=== PATIENT | male | born 2000 | race Caucasian/White ===

== ENCOUNTER 2023-07-20 19:02 | Emergency (ER) | payer OTHER, SELFPAY ==
[2023-07-20 19:13] VITALS: BP 147/66; PULSE 106; RESP 16; TEMP 36.7; O2SAT 99
--- NOTE | 2023-07-20 19:22 | XRR_ITS ---
PROCEDURE INFORMATION: Exam: XR Right Hand Exam date and time: 07/20/2023 7:41 PM Age: 23 years old Clinical indication: Injury or trauma; Other: Dog bite; Hand; Right; Additional info: Injury, dog bite TECHNIQUE: Imaging protocol: Radiologic exam of the right hand. Views: 3 or more views. COMPARISON: No relevant prior studies available. FINDINGS: Bones/joints: The bones are intact. No fracture. Soft tissues: Soft tissue swelling in the 1st intercarpal space and in the 2nd and 3rd fingers. No foreign body. XR/XR hand RT min 3V* [id number] IMPRESSION: No acute skeletal findings.
--- NOTE | 2023-07-20 19:26 | ED_ITS ---
HPI - Animal Bite General: Chief Complaint: Animal Bite Stated Complaint: dog bite Time Seen by Provider: 07/20/23 19:23 History of Present Illness: Patient comes in today for a injury to his middle finger on his right hand. On Wednesday patient was trying to get something out of his dog's mouth when it bit down on his finger. Patient did not pay any concern to the injury until today when he noticed that it was more red and swollen. Patient has puncture wound to the distal lateral aspect of the middle finger on the right hand. Minimal to no swelling is noted. Patient does have some mild erythema at the site. Patient cannot recall his last tetanus but believes it was somewhere around seventh or eighth grade. Patient denies any allergies to medications. Associated symptoms: Deny fever(s) Review of Systems Const: Denies: fever(s) Musc: Reports: extremity pain and extremity swelling Physical Exam Const: COMMON NORMALS: alert HENMT: COMMON NORMALS: normocephalic HEAD & SCALP: normocephalic Neck/C-Spine: COMMON NORMALS: full ROM Cardio: COMMON NORMALS: regular rate RATE: regular rate GI: COMMON NORMALS: Soft to palpation and non-tender PALPATION: Yes Soft to palpation Extremity: RIGHT UPPER EXTREMITY: Yes hand & digits (Puncture wound distal lateral right middle finger, minimal swelling and red) Neuro: SENSORIUM/ORIENTATION: Yes alert Skin: TRAUMA: puncture (Distal right middle finger) Course Vital Signs: Vital signs: Vital Signs Temperature 98.0 F 07/20/23 19:13 Pulse Rate 106 H 07/20/23 19:13 Respiratory Rate 16 07/20/23 19:13 Blood Pressure 147/66 07/20/23 19:13 Pulse Oximetry 99 07/20/23 19:13 Oxygen Delivery Me thod Room Air 07/20/23 19:13 MDM - Animal Bite Medical Decision Making 23-year-old male patient comes in today with injury to the right middle finger. On exam we note a puncture wound to the distal part of his right middle finger. There is some minimal swelling and redness to the finger. Patient has good range of motion. Differential diagnosis includes fracture, foreign body, wound infection, felon, tenosynovitis. X-ray was unremarkable. No signs of tenosynov itis is noted at this time. Recommend patient start on Augmentin 875 3 times a day for the next 5 days. Patient should follow-up with primary care in 2 to 3 days for recheck. Return to ED for worsening symptoms. Patient reported understanding and agreed to plan. XR interpretation done by ED provider, pending radiology final review Discharge Plan Discharge Patient Disposition: Home Clinical Impression: Dog bite Qualifiers: Encounter type: initial encounter Qualified Code(s): W54.0XXA - Bitten by dog, initial encounter Puncture wound of finger Qualifiers: Encounter type: initial encounter Qualified Code(s): S61.239A - Puncture wound without foreign body of unspecified finger without damage to nail, initial encounter Condition: Stable Prescriptions: New amoxicillin-pot clavulanate 875-125 mg tablet 1 tab PO Q8H Qty: 15 0RF hydrocodone-acetaminophen 5-325 mg tablet 1 tab PO Q8H PRN (Reason: pain (scale score 7-10)) Qty: 7 0RF Discharge Orders: Discharge ED (Routine); Ordered 07/20/23 Ordered By: Juan F Jones Discharge Diet: Usual diet Discharge Activity: Increase activity as tolerated Patient Instructions: Puncture Wound (ED), Opioid Safety Activity Restrictions/Additional Instructions: Activity as tolerated. Take antibiotics as directed. Use acetaminophen ibuprofen to control pain. Use hydrocodone for severe pain. Do not use hydrocodone if operating equipment or tools that may put yourself or others at risk. Follow-up with primary care in 3 days for recheck. Return to ED for worsening symptoms such as high fever greater than 100.4, inability to hold fluids down, or new concerns. Coding Level of Care Code ED Natural Resources Specialist for Mannie Kearns
[2023-07-20] MEDS: amoxicillin-clav 875-125 mg Tablet 1 TAB PO (19:35)
[2023-07-20] MEDS: tetanus-dipt-pertussis 0.5 mL SDV IM (19:35)
[2023-07-20 20:26] VITALS: BP 147/66; PULSE 106; RESP 16; TEMP 36.7; O2SAT 99
== END 2023-07-20 20:27 | disposition home or self-care (01) ==
PROVIDERS: Emergency Provider Nurse Practitioner Family
DX: S61.252A Open bite of right middle finger without damage to nail, initial encounter (principal); W54.0XXA Bitten by dog, initial encounter; Z23 Encounter for immunization
CPT/HCPCS: 73130; 90471; 90715; 99283